=== PATIENT | female | born 1930 | race Caucasian/White ===

== ENCOUNTER 2021-11-20 12:39 | Inpatient (IN) | payer OTHER, SELFPAY ==
[~2021-11-20] VITALS: Ht 152.4 cm; Wt 51.7 kg
--- NOTE | 2021-11-20 12:43 | NUR ---
Patient to ER bed 04 to gown for evaluation. Side rails up.
[2021-11-20 12:50] VITALS: BP_SYST 144
[2021-11-20] MEDS ORDERED: NACL 0.9% 1,000 ML IV ONE (13:00)
[2021-11-20 13:27] LABS: BASOPHILS % (AUTO) 0.2 % (0.0-2.0); HEMATOCRIT 45.5 % (36-48); HEMOGLOBIN 14.4 g/dL (12.0-16.0); LYMPHOCYTES # (AUTO) 0.5 K/uL (1.0-5.5); LYMPHOCYTES % (AUTO) 3.2 % (20.5-51.5); MEAN CORPUSCULAR HEMOGLOBIN 31 pg (27-31); MEAN CORPUSCULAR HGB CONC 32 % (32-36); MEAN CORPUSCULAR VOLUME 97 fL (79.0-98.0); MONOCYTES # (AUTO) 1.1 K/uL (0.0-1.0); MONOCYTES % (AUTO) 7.6 % (1.7-9.3); NEUTROPHILS # (AUTO) 13.4 K/uL (1.8-7.7); PLATELET COUNT (AUTO) 371 K/uL (130-430); RED BLOOD CELL COUNT(AUTO) 4.68 MIL/uL (4.2-6.2); RED CELL DISTRIBUTION WIDTH 15.1 % (9.0-15.0)
[2021-11-20 13:47] LABS: ALANINE AMINOTRANSFERASE 40 U/L (12-78); ANION GAP 21 (5-15); ASPARTATE AMINOTRANSFERASE 51 U/L (10-37); CALCIUM 9.7 mg/dL (8.4-11.0); CHLORIDE 115 mmol/L (98-107); CREATININE 3.22 mg/dL (0.55-1.30); GLUCOSE 143 mg/dL (70-99); POTASSIUM 4.7 mmol/L (3.5-5.1); SODIUM SERUM 152 mmol/L (136-145); TOTAL BILIRUBIN 0.6 mg/dL (0.0-1.0)
[2021-11-20 13:57] LABS: UREA NITROGEN, BLOOD 128 mg/dL (8-21)
--- NOTE | 2021-11-20 14:18 | NUR ---
ER physician at bedside.
--- NOTE | 2021-11-20 14:19 | NUR ---
covid swab sent to lab
--- NOTE | 2021-11-20 14:19 | NUR ---
Cleaned pt and changed linen. EKG done at bedside.
[2021-11-20 14:30] LABS: CKMB RELATIVE INDEX 6.1 (0.0-2.9); CREATINE KINASE MB 23.6 ng/mL (0-3.6)
[2021-11-20] MEDS: NACL 0.9% 1,000 ML IV SCH (15:24)
--- NOTE | 2021-11-20 15:57 | NUR ---
1000ml NS running at 100ml/hr.
--- NOTE | 2021-11-20 18:19 | NUR ---
Family at bedside.
--- NOTE | 2021-11-20 18:21 | NUR ---
Pt's Temp was 95.3 rect[address] pt on a bed hugger running at 32Celsius and low rate. placed two warm blankets on pt. ER physician aware.
--- NOTE | 2021-11-20 19:32 | NUR ---
Patient AAO x2, resting comfortably in [facility], with bear hugger on, on radiographer cardiac catheterization, VSS, breathing even unlabored and even, on 2L NC with O2 saturation 99%, symmetrical chest rise and fall, no signs of acute distress noted. Patient IV fluids infusing at prescribed rate, no signs of infiltration noted. Will continue to monitor.
--- NOTE | 2021-11-20 20:22 | NUR ---
Patients son number David Campbell Fidel Campbell
--- NOTE | 2021-11-20 20:25 | NUR ---
Patient took nasal cannula off, patients oxygen saturation 97% on room air. Will continue to monitor.
--- NOTE | 2021-11-20 20:40 | NUR ---
Patient given sips of water. Patient cleaned and new sheets, linen, and gown on patient.
[2021-11-20] MEDS ORDERED: ALBUTEROL SULFATE 0.083% 2.5 MG/3 ML VIAL.NEB INH PRN (21:15)
[2021-11-20] MEDS ORDERED: ACETAMINOPHEN 325 MG TABLET PO PRN (21:15)
[2021-11-20] MEDS ORDERED: 0.45% NACL 1,000 ML IV SCH (21:15)
--- NOTE | 2021-11-20 21:18 | NUR ---
Patient will be admitted to care of Dr. Uribe. Admitted to TELE unit. Will go to room pending. Belongings list completed. Complete and up to date summary report printed. SBAR report to be given at bedside with opportunity for questions.
[2021-11-20] MEDS ORDERED: ASPIRIN 325 MG TABLET PO ONE (21:30)
--- NOTE | 2021-11-20 21:30 | NUR ---
Patient's code status is FULL CODE paperwork completed and placed in chart.
--- NOTE | 2021-11-20 21:34 | NUR ---
Patient will be going to room 104A
--- NOTE | 2021-11-20 22:11 | NUR ---
Patient saturated the bed with urine. Patient cleaned and linens changed.
--- NOTE | 2021-11-20 22:15 | NUR ---
Patients ainsley Hernandez updated on room number
--- NOTE | 2021-11-20 22:19 | NUR ---
Transfer to TELE via ACLS protocol. Licensed nurse present. IV present no signs or symptoms of infiltration.
--- NOTE | 2021-11-20 22:23 | NUR ---
ADMISSION NOTE Received patient from ER via nino, received report from CHANDAN SMILEY. Patient admitted with diagnosis of NSTEMI. Patient oriented to hospital routine, call light, toileting and safety-patient verbalized understanding.
[2021-11-20 22:37] VITALS: BP_SYST 134
--- NOTE | 2021-11-20 23:53 | NUR ---
CONSULTATION PAGED/CALLED Reason for Consultation: RENAL FAILURE Person Who was Notified: CHINEDU Consulting Physician: ROX Wad Impregnator Specialty: Ordering Physician: SHEBA
--- NOTE | 2021-11-21 | NUR ---
ROUNDING NOTES Patient resting in bed - no s/s pain or distress noted. Respirations even and unlabored - head of bed elevated. IV site patent - no s/s redness, infection, or infiltration. Bed locked and in lowest position. Call light within reach - bed alarm on.
--- NOTE | 2021-11-21 00:09 | NUR ---
CONSULTATION PAGED/CALLED Reason for Consultation: ELEVATED TROP Person Who was Notified: CHINEDU Consulting Physician: REGINO Photoengraver Specialty: Ordering Physician: ROSANA
[2021-11-21] MEDS ORDERED: cefTRIAXone 1 GM IVPB PREMIX 50 ML IV ONE (00:29)
[2021-11-21] MEDS: cefTRIAXone 1 GM IVPB PREMIX 50 ML IV SCH ×2 (00:41→21:43)
[2021-11-21 01:45] VITALS: BP_SYST 134
--- NOTE | 2021-11-21 05:29 | NUR ---
IV FLUID ISSUE IN EMAR TWO IV FLUIDS IN EMAR: ONE FOR 1/2NS and 0.9NS. NOTIFIED DR. CANO OF DISCREPANCY. ORDERS TO DISCONTINUE 1/2NS.
[2021-11-21] MEDS: NACL 0.9% 1,000 ML IV SCH ×3 (06:50→17:13)
--- NOTE | 2021-11-21 07:30 | NUR ---
CLOSING NOTES Patient resting in bed - no s/s pain or distress noted. Respirations even and unlabored - head of bed elevated. IV site patent - no s/s redness, infection, or infiltration. Bed locked and in lowest position. Call light within reach - bed alarm on. Patient cleaned at approximately 0600.
--- NOTE | 2021-11-21 07:35 | NUR ---
Opening Received report on pt. Pt AAOx1, in no distress or pain, on room air. IV site intact, patent with IVF infusing. Pt also noted with multiple ecchymotic sites. No other complaints per pt.
[2021-11-21 07:45] LABS: BASOPHILS % (AUTO) 0.1 % (0.0-2.0); HEMATOCRIT 40.7 % (36-48); HEMOGLOBIN 13.2 g/dL (12.0-16.0); LYMPHOCYTES # (AUTO) 0.8 K/uL (1.0-5.5); LYMPHOCYTES % (AUTO) 5.9 % (20.5-51.5); MEAN CORPUSCULAR HEMOGLOBIN 31 pg (27-31); MEAN CORPUSCULAR HGB CONC 33 % (32-36); MONOCYTES # (AUTO) 0.9 K/uL (0.0-1.0); MONOCYTES % (AUTO) 6.7 % (1.7-9.3); NEUTROPHILS # (AUTO) 11.4 K/uL (1.8-7.7); NEUTROPHILS % (AUTO) 87.3 % (40.0-70.0); PLATELET COUNT (AUTO) 343 K/uL (130-430); RED BLOOD CELL COUNT(AUTO) 4.26 MIL/uL (4.2-6.2); RED CELL DISTRIBUTION WIDTH 14.6 % (9.0-15.0); WHITE BLOOD COUNT (AUTO) 13.1 K/uL (4.8-10.8)
[2021-11-21 07:56] LABS: ALANINE AMINOTRANSFERASE 42 U/L (12-78); ALBUMIN 2.8 g/dL (3.4-4.8); ANION GAP 19 (5-15); ASPARTATE AMINOTRANSFERASE 43 U/L (10-37); CALCIUM 9.1 mg/dL (8.4-11.0); CHLORIDE 114 mmol/L (98-107); CREATININE 3.04 mg/dL (0.55-1.30); GLUCOSE 97 mg/dL (70-99); SODIUM SERUM 151 mmol/L (136-145); TOTAL BILIRUBIN 0.3 mg/dL (0.0-1.0)
[2021-11-21 08:07] LABS: UREA NITROGEN, BLOOD 128 mg/dL (8-21)
[2021-11-21 08:21] LABS: MEAN CORPUSCULAR VOLUME 95 fL (79.0-98.0)
[2021-11-21 09:17] LABS: CREATINE KINASE MB 19.7 ng/mL (0-3.6)
--- NOTE | 2021-11-21 09:40 | NUR ---
Medication reconciliation done, list provided by pt's son. Informed Dr. Uribe.
[2021-11-21] MEDS: ASPIRIN 325 MG TABLET PO SCH (09:58)
--- NOTE | 2021-11-21 10:00 | NUR ---
Dr. Uribe rounding on pt and speaking with pt's sons x3.
[2021-11-21] MEDS ORDERED: LISI20TA30 PO (10:13)
--- NOTE | 2021-11-21 10:48 | NUR ---
CONSULTATION: REASON FOR CONSULT: CONFUSION CONSULTING PHYSICIAN: Ritika MAR ORDERED BY: ROSANA SPOKE WITH NIMA [phone]
--- NOTE | 2021-11-21 10:50 | NUR ---
CONSULTATION: REASON FOR CONSULT: PSYCH ISSUES CONSULTING PHYSICIAN; Angelica GARCIA ORDERED BY: ROSANA SPOKE WITH CONRAD [phone]
--- NOTE | 2021-11-21 11:36 | NUR ---
Nutrition Update : Jamal Scale: 13 noted Pt admitted for NonST elevation myocardial infarction. Diet: Cardiac BMI: 22.5 kg/m2 RD to follow per nutrition care standards.
--- NOTE | 2021-11-21 12:00 | NUR ---
Pt in no acute distress at this time. IVF infusing, no infiltration noted.
[2021-11-21 12:37] VITALS: BP_SYST 138
--- NOTE | 2021-11-21 14:42 | NUR ---
INFORMED BALJIT VALENCIA THAT PT IS OFF MONITOR.
[2021-11-21 16:30] VITALS: BP_SYST 136
--- NOTE | 2021-11-21 16:30 | NUR ---
Collected urine culture from straight catheter using sterile technique. Pt tolerated well.
--- NOTE | 2021-11-21 17:00 | NUR ---
Multiple attempts to keep telemetry leads/monitor on patient, patient removes leads despite reorientation and education. Patient is confused.
--- NOTE | 2021-11-21 18:30 | NUR ---
Closing Pt up in bed eating dinner. Multiple attempts made to keep telemetry leads on despite education and reorientation. Pt states no pain or distress at this time on RA. IV site intact, patent, no infiltration noted with IVF infusing. Will endorse plan of care to oncoming RN.
[2021-11-21 18:32] LABS: BILIRUBIN,URINE 1+ (NEGATIVE); CLARITY/URINE CLEAR (CLEAR); GLUCOSE,URINE NEGATIVE (NEGATIVE); KETONES,URINE NEGATIVE (NEGATIVE); LEUKOCYTE ESTERASE ,URINE NEGATIVE (NEGATIVE); NITRITE, URINE NEGATIVE (NEGATIVE); PH,URINE 5.5 (5.0-8.0); PROTEIN URINE NEGATIVE (NEGATIVE); UROBILINOGEN,URINE 0.2 (0.2-1.0)
[2021-11-21 18:46] LABS: BLOOD, URINE TRACE (NEGATIVE); COLOR,URINE AMBER (YELLOW)
[2021-11-21 19:37] LABS: BACTERIA,URINE RARE /HPF (None Seen); MUCUS,URINE None Seen /LPF (None Seen); RBC,URINE 0-3 /HPF (0-3); WBC,URINE 0-3 /HPF (0-3)
[2021-11-21 22:09] VITALS: BP_SYST 151
[2021-11-22] MEDS: NACL 0.9% 1,000 ML IV SCH ×2 (00:40→09:00)
[2021-11-22 00:48] VITALS: BP_SYST 130
--- NOTE | 2021-11-22 06:47 | NUR ---
ALL NEEDS MET, SAFETY AND COMFORT MEASURES MAINTAINED THROUGHOUT THE SHIFT. PATIENT SLEPT MOST OF THE NIGHT AND WOKE UP DURING MED PASS OR IV BAG CHANGE. SHE IS ALERT AND ORIENTED BUT REPEATS HERSELF. CALL LIGHT WITHIN REACH AND BED AT LOWEST POSITION
[2021-11-22 08:00] VITALS: BP_SYST 129
[2021-11-22 08:11] LABS: BASOPHILS % (AUTO) 0.1 % (0.0-2.0); EOSINOPHILS % (AUTO) 0.3 % (0.0-4.0); HEMATOCRIT 37.2 % (36-48); HEMOGLOBIN 12.1 g/dL (12.0-16.0); LYMPHOCYTES # (AUTO) 0.7 K/uL (1.0-5.5); LYMPHOCYTES % (AUTO) 5.8 % (20.5-51.5); MEAN CORPUSCULAR HEMOGLOBIN 31 pg (27-31); MEAN CORPUSCULAR HGB CONC 32 % (32-36); MEAN CORPUSCULAR VOLUME 95 fL (79.0-98.0); MONOCYTES # (AUTO) 0.7 K/uL (0.0-1.0); MONOCYTES % (AUTO) 5.9 % (1.7-9.3); NEUTROPHILS # (AUTO) 10.3 K/uL (1.8-7.7); NEUTROPHILS % (AUTO) 87.9 % (40.0-70.0); PLATELET COUNT (AUTO) 306 K/uL (130-430); RED BLOOD CELL COUNT(AUTO) 3.92 MIL/uL (4.2-6.2); RED CELL DISTRIBUTION WIDTH 14.6 % (9.0-15.0); WHITE BLOOD COUNT (AUTO) 11.7 K/uL (4.8-10.8)
[2021-11-22 08:38] LABS: ALANINE AMINOTRANSFERASE 36 U/L (12-78); ALBUMIN 2.3 g/dL (3.4-4.8); ANION GAP 13 (5-15); ASPARTATE AMINOTRANSFERASE 41 U/L (10-37); CALCIUM 8.4 mg/dL (8.4-11.0); CREATININE 2.32 mg/dL (0.55-1.30); GLUCOSE 103 mg/dL (70-99); POTASSIUM 4.1 mmol/L (3.5-5.1); SODIUM SERUM 152 mmol/L (136-145); THYROID STIMULATING HORMONE 1.35 uIu/mL (0.36-3.74); TOTAL BILIRUBIN 0.2 mg/dL (0.0-1.0)
[2021-11-22] MEDS: ASPIRIN 325 MG TABLET PO SCH (09:44)
[2021-11-22 09:59] LABS: CHLORIDE 120 mmol/L (98-107)
[2021-11-22 10:00] LABS: UREA NITROGEN, BLOOD 101 mg/dL (8-21)
[2021-11-22 10:31] LABS: CHOLESTEROL 170 mg/dL (<200); HDL CHOLESTEROL 54 mg/dL (>55); LDL CHOLESTEROL 86 mg/dL (<100); TRIGLYCERIDES 100 mg/dL (30-150)
[2021-11-22 13:09] VITALS: BP_SYST 134
[2021-11-22 17:47] VITALS: BP_SYST 175
--- NOTE | 2021-11-22 21:00 | NUR ---
pt awake, alert & oriented. not in distress. meds administered as ordered. turned and repositioned. new IV on right hand inserted due to prior iv lines infiltrated. new iv line intact and patent. ivf running. w/ f/c draining yellow colored urine adequate output. proper skin care provided. call light w/in reach. Addendum: 11/23/21 at 0804 by Fifteen air bag builder wrong patient
[2021-11-22] MEDS: cefTRIAXone 1 GM IVPB PREMIX 50 ML IV SCH (21:15)
[2021-11-23] VITALS (7 sets, daily range): BP systolic 136–164
--- NOTE | 2021-11-23 03:30 | NUR ---
pt asleep, easily arousable to verbal & tactile stimuli.. not in distress. turned and repositioned. ivf running. proper skin care provided. handled resident gently & carefully during care. proper incontinence care provided . offered extra oral fluids as tiburcio. no a/r from iv abx. turned & repositioned q2h. call light w/in reach.needs anticipated. endorsed accordingly to upcoming shift.
--- NOTE | 2021-11-23 06:00 | NUR ---
pt awake, alert & oriented. not in distress. turned and repositioned. ivf running. w/ f/c draining yellow colored urine adequate output. proper joya care provided. blood sugar checked as ordered and wnl. proper skin care provided. call light w/in reach.needs anticipated. endorsed accordingly to upcoming shift. Addendum: 11/23/21 at 0803 by Fifteen dust sampler wrong patient
[2021-11-23] MEDS: NACL 0.9% 1,000 ML IV SCH (06:19)
[2021-11-23 07:12] LABS: BASOPHILS % (AUTO) 0.2 % (0.0-2.0); EOSINOPHILS # (AUTO) 0.1 K/uL (0.0-0.4); EOSINOPHILS % (AUTO) 0.9 % (0.0-4.0); HEMATOCRIT 36.9 % (36-48); HEMOGLOBIN 12.2 g/dL (12.0-16.0); LYMPHOCYTES # (AUTO) 0.7 K/uL (1.0-5.5); LYMPHOCYTES % (AUTO) 7.4 % (20.5-51.5); MEAN CORPUSCULAR HEMOGLOBIN 31 pg (27-31); MEAN CORPUSCULAR HGB CONC 33 % (32-36); MEAN CORPUSCULAR VOLUME 94 fL (79.0-98.0); MONOCYTES # (AUTO) 0.7 K/uL (0.0-1.0); MONOCYTES % (AUTO) 7.3 % (1.7-9.3); NEUTROPHILS # (AUTO) 7.7 K/uL (1.8-7.7); NEUTROPHILS % (AUTO) 84.2 % (40.0-70.0); PLATELET COUNT (AUTO) 274 K/uL (130-430); RED BLOOD CELL COUNT(AUTO) 3.95 MIL/uL (4.2-6.2); RED CELL DISTRIBUTION WIDTH 14.8 % (9.0-15.0); WHITE BLOOD COUNT (AUTO) 9.1 K/uL (4.8-10.8)
--- NOTE | 2021-11-23 08:00 | NUR ---
PATIENT IS AWAKE, ALERT, ORIENTED X 3 TO NAME, PERSON, AND PLACE. RESPIRATION EVEN AND UNLABORED NO S/S OF ANY ACUTE DISTRESS NOTED. ABLE TO VERBALIZE NEEDS NO C/O ANY PAIN OR DISCOMFORT NOTED. ABDOMEN SOFT AND NON-DISTENDED, POSITIVE BOWEL SOUND X 4 NO N/V OR DIARRHEA NOTED. MULTIPLE SKIN PROBLEM, WOUND CARE NURSE TO SEE PATIENT WILL START TREATMENT ON SKIN PROBLEM TODAY PER PROTOCOL.
[2021-11-23 08:03] LABS: ALANINE AMINOTRANSFERASE 38 U/L (12-78); ALBUMIN 2.3 g/dL (3.4-4.8); ANION GAP 10 (5-15); ASPARTATE AMINOTRANSFERASE 34 U/L (10-37); CALCIUM 8.3 mg/dL (8.4-11.0); GLUCOSE 105 mg/dL (70-99); POTASSIUM 4.1 mmol/L (3.5-5.1); SODIUM SERUM 156 mmol/L (136-145); TOTAL BILIRUBIN 0.1 mg/dL (0.0-1.0); UREA NITROGEN, BLOOD 75 mg/dL (8-21)
[2021-11-23 08:12] LABS: CHLORIDE 123 mmol/L (98-107)
--- NOTE | 2021-11-23 08:16 | NUR ---
critical informed RN of critical Chloride
[2021-11-23] MEDS ORDERED: 0.45% NACL 1,000 ML IV ONE (10:08)
[2021-11-23] MEDS: ASPIRIN 325 MG TABLET PO SCH (11:02)
[2021-11-23] MEDS: D5W 1,000 ML IV SCH ×2 (11:02→20:44)
--- NOTE | 2021-11-23 15:10 | NUR ---
WOUND EVALUATION: Wound Consult received from Dr. Uribe. Thank you, Dr. Uribe, for the consult. Patient received in a [place] Bed with an IsoFlex TEDDY mattress (low air-loss therapy was initiated), awake, alert, confused. Patient is unable to turn in bed independently. Jamal Score is a 15. Past Medical History: Hypertension, Dementia. Recent Labs: WBC 9.1, RBC 3.95, hemoglobin 12.2, hematocrit 36.9, sodium 156, chloride 123, BUN 75, creatinine 1.80, glucose 105, calcium 8.3, serum total protein 5.7, albumin 2.3. No microbiology reports. Intrinsic factors that delay wound healing: Hypoalbuminemia. Extrinsic factors that delay wound healing: Decreased mobility. Wound Assessment: 1. Right Lower Abdomen: Wound of unknown etiology, possibly moisture associated, present on admission. Wound bed has 70% denuded red tissue, 30% yellow tissue. No odor, scant yellow drainage. Periwound intact. Surrounding tissue has erythema. Wound measures 14.3 cm x 11.5 cm. Recommend: Cleanse wound with normal saline. Apply Calmoseptine to site and periwound. Apply Venelex ointment to any portion of site not covered by Calmoseptine cream. Cover site with non-adhesive foam dressings, then secure with transparent dressings. Perform wound care daily, and is needed with dressing soiling or dislodgment. 2. Left Lateral Lower Abdomen: Wound of unknown etiology, present on admission. Wound bed has 70% black tissue, 25% yellow tissue, 5% pink tissue. No odor, scant yellow drainage. Periwound intact. Wound measures 8.7 cm x 7.0 cm. Recommend: Cleanse wound with normal saline. Apply Calmoseptine cream to periwound. Apply Venelex ointment to wound bed. Cover site with foam dressing. Perform wound care daily, and is needed with dressing soiling or dislodgment. 3. Left Lateral Knee: Dry brown excoriations, present on admission. No odor, no drainage. 4. Right Medial Knee: Dry brown excoriations, present on admission. No odor, no drainage. Recommend: No dressings needed. Continue to monitor sites every shift. Also recommend: Encourage and assist patient as needed with repositioning every 2 hours with pillow support and off-load pressure areas with pillows for pressure re-distribution. Offload, elevate and float bilateral heels with pillows. Perform skin care and monitor skin integrity Q shift. Use moisture barrier cream on buttocks and other moisture susceptible areas QID and as needed for soiling. Maintain patient on a low air-loss mattress. Addendum: 11/23/21 at 1714 by Francisco Dong RN Addendum: 5. Buttocks/Sacral area: Erythema from IAD present on buttocks and sacral area. Recommend: Cleanse involved areas with mild soap and water. Pat dry. Apply Calmoseptine to involved areas. Perform site care qid, and as needed for soiling. 6. Bilateral Anterior Thighs and Abdomen: Generalized erythema (possible rash) present on bilateral anterior thighs and abdomen. Recommend: Cleanse involved areas with mild soap and water. Pat dry. Apply Calmoseptine to involved areas. Perform site care qid, and as needed for soiling.
[2021-11-23] MEDS ORDERED: MENTHOL/ZINC OXIDE 113 GM OINT. TP PRN (16:30)
[2021-11-23] MEDS ORDERED: BALSAM PERU/CASTOR OIL 56.7 GM OINT...G. TP ONE (16:30)
--- NOTE | 2021-11-23 19:00 | NUR ---
WOUND CARE NURSE DID SEE PATIENT TONIGHT AND TREATMENT TO BE STARTED. ABNORMAL LAB RELAYED TO MD WITH NEW ORDERS RECEIVED AND CARRIED OUT ORDERED. PATIENT TOLERATED PO WELL WITH FAIR APPETITE W/O ANY ABDOMINAL DISCOMFORT NOTED. ENDORSE PATIENT TO PM SHIFT NURSE.
[2021-11-23] MEDS: cefTRIAXone 1 GM IVPB PREMIX 50 ML IV SCH (20:38)
[2021-11-24 07:35] LABS: BASOPHILS % (AUTO) 0.3 % (0.0-2.0); EOSINOPHILS # (AUTO) 0.2 K/uL (0.0-0.4); EOSINOPHILS % (AUTO) 2.1 % (0.0-4.0); HEMOGLOBIN 12.7 g/dL (12.0-16.0); LYMPHOCYTES # (AUTO) 0.6 K/uL (1.0-5.5); MEAN CORPUSCULAR HEMOGLOBIN 31 pg (27-31); MEAN CORPUSCULAR HGB CONC 33 % (32-36); MEAN CORPUSCULAR VOLUME 96 fL (79.0-98.0); MONOCYTES # (AUTO) 0.7 K/uL (0.0-1.0); NEUTROPHILS # (AUTO) 8.2 K/uL (1.8-7.7); NEUTROPHILS % (AUTO) 84.6 % (40.0-70.0); PLATELET COUNT (AUTO) 268 K/uL (130-430); RED BLOOD CELL COUNT(AUTO) 4.08 MIL/uL (4.2-6.2); RED CELL DISTRIBUTION WIDTH 14.4 % (9.0-15.0); WHITE BLOOD COUNT (AUTO) 9.7 K/uL (4.8-10.8)
[2021-11-24 08:00] VITALS: BP_SYST 146
[2021-11-24 08:21] LABS: ALANINE AMINOTRANSFERASE 46 U/L (12-78); ALBUMIN 2.4 g/dL (3.4-4.8); ANION GAP 11 (5-15); ASPARTATE AMINOTRANSFERASE 38 U/L (10-37); CALCIUM 8.5 mg/dL (8.4-11.0); CHLORIDE 113 mmol/L (98-107); CREATININE 1.34 mg/dL (0.55-1.30); GLUCOSE 104 mg/dL (70-99); POTASSIUM 3.8 mmol/L (3.5-5.1); SODIUM SERUM 145 mmol/L (136-145); TOTAL BILIRUBIN 0.3 mg/dL (0.0-1.0); UREA NITROGEN, BLOOD 52 mg/dL (8-21)
[2021-11-24] MEDS: ASPIRIN 325 MG TABLET PO SCH (10:43)
[2021-11-24] MEDS: BALSAM PERU/CASTOR OIL 56.7 GM OINT...G. TP SCH (10:46)
[2021-11-24 12:00] VITALS: BP_SYST 150
[2021-11-24 16:00] VITALS: BP_SYST 147
[2021-11-24] MEDS: D5W 1,000 ML IV SCH ×2 (16:15→17:15)
[2021-11-24 20:00] VITALS: BP_SYST 158
[2021-11-24 20:11] VITALS: BP_SYST 158
[2021-11-25] VITALS: BP_SYST 116
[2021-11-25 07:42] LABS: BASOPHILS % (AUTO) 0.1 % (0.0-2.0); EOSINOPHILS # (AUTO) 0.2 K/uL (0.0-0.4); EOSINOPHILS % (AUTO) 2.1 % (0.0-4.0); HEMATOCRIT 38.1 % (36-48); HEMOGLOBIN 12.4 g/dL (12.0-16.0); LYMPHOCYTES # (AUTO) 0.5 K/uL (1.0-5.5); LYMPHOCYTES % (AUTO) 5.2 % (20.5-51.5); MEAN CORPUSCULAR HEMOGLOBIN 31 pg (27-31); MEAN CORPUSCULAR HGB CONC 33 % (32-36); MEAN CORPUSCULAR VOLUME 95 fL (79.0-98.0); MONOCYTES # (AUTO) 0.8 K/uL (0.0-1.0); MONOCYTES % (AUTO) 7.9 % (1.7-9.3); NEUTROPHILS # (AUTO) 8.9 K/uL (1.8-7.7); NEUTROPHILS % (AUTO) 84.7 % (40.0-70.0); PLATELET COUNT (AUTO) 254 K/uL (130-430); RED BLOOD CELL COUNT(AUTO) 4.03 MIL/uL (4.2-6.2); RED CELL DISTRIBUTION WIDTH 14.3 % (9.0-15.0); WHITE BLOOD COUNT (AUTO) 10.5 K/uL (4.8-10.8)
[2021-11-25 08:12] LABS: ANION GAP 11 (5-15); CALCIUM 8.3 mg/dL (8.4-11.0); CHLORIDE 109 mmol/L (98-107); CREATININE 1.17 mg/dL (0.55-1.30); GLUCOSE 116 mg/dL (70-99); PHOSPHORUS 2.1 mg/dL (2.7-4.5); POTASSIUM 3.7 mmol/L (3.5-5.1); SODIUM SERUM 142 mmol/L (136-145); UREA NITROGEN, BLOOD 36 mg/dL (8-21)
[2021-11-25 09:04] LABS: C-REACTIVE PROTEIN QUANT 6.4 mg/dL (0-0.5)
[2021-11-25] MEDS: ASPIRIN 325 MG TABLET PO SCH (09:09)
[2021-11-25] MEDS: BALSAM PERU/CASTOR OIL 56.7 GM OINT...G. TP SCH (09:10)
[2021-11-25] MEDS: cefTRIAXone 1 GM IVPB PREMIX 50 ML IV SCH ×2 (09:19→21:58)
[2021-11-25 09:24] VITALS: BP_SYST 170
[2021-11-25 09:24] LABS: ERYTHROCYTE SEDIMENTATION RATE 17 MM/HR (0-20)
--- NOTE | 2021-11-25 15:31 | NUR ---
Dietitian Recommendations * Cardiac diet, Ensure Enlive BID, Mike BID (supplements yield 880 kcal/day, 45 gm protein/day) * Encourage increase PO intakes LP, RD Please refer to Nutrition Assessment for details. Addendum: 11/25/21 at [address] Amended: Links added.
[2021-11-25 20:00] VITALS: BP_SYST 125
[2021-11-26 07:36] LABS: BASOPHILS # (AUTO) 0.1 K/uL (0.0-0.2); BASOPHILS % (AUTO) 0.8 % (0.0-2.0); EOSINOPHILS # (AUTO) 0.2 K/uL (0.0-0.4); EOSINOPHILS % (AUTO) 1.7 % (0.0-4.0); HEMATOCRIT 37.6 % (36-48); HEMOGLOBIN 12.6 g/dL (12.0-16.0); LYMPHOCYTES # (AUTO) 0.5 K/uL (1.0-5.5); LYMPHOCYTES % (AUTO) 5.3 % (20.5-51.5); MEAN CORPUSCULAR HEMOGLOBIN 31 pg (27-31); MEAN CORPUSCULAR HGB CONC 34 % (32-36); MEAN CORPUSCULAR VOLUME 93 fL (79.0-98.0); MONOCYTES # (AUTO) 0.8 K/uL (0.0-1.0); MONOCYTES % (AUTO) 7.3 % (1.7-9.3); NEUTROPHILS # (AUTO) 8.9 K/uL (1.8-7.7); NEUTROPHILS % (AUTO) 84.9 % (40.0-70.0); PLATELET COUNT (AUTO) 240 K/uL (130-430); RED BLOOD CELL COUNT(AUTO) 4.03 MIL/uL (4.2-6.2); RED CELL DISTRIBUTION WIDTH 14.1 % (9.0-15.0); WHITE BLOOD COUNT (AUTO) 10.4 K/uL (4.8-10.8)
--- NOTE | 2021-11-26 08:00 | NUR ---
NOTES PATIENT ALERT AWAKE BUT CONFUSED. VITALS SIGNS STABLE. AFEBRILE. LUNGS BILATERALLY CLEAR. ABDOMEN SOFT AND NON DISTENDED. HAS DRESSING LOWER AREA OF THE ABDOMEN AND LEFT SIDE. DRY AND INTACT. HAS IV ACCESS ON THE RT FOREARM #22. SALINE LOCK PATENT/DRY. WILL CONTINUE TO MONITOR PATIENTS STATUS.
[2021-11-26 08:14] VITALS: BP_SYST 144
[2021-11-26 08:14] LABS: ALANINE AMINOTRANSFERASE 40 U/L (12-78); ALBUMIN 2.1 g/dL (3.4-4.8); ANION GAP 7 (5-15); ASPARTATE AMINOTRANSFERASE 24 U/L (10-37); CALCIUM 8.1 mg/dL (8.4-11.0); CHLORIDE 107 mmol/L (98-107); CREATININE 1.05 mg/dL (0.55-1.30); GLUCOSE 127 mg/dL (70-99); PHOSPHORUS 2.5 mg/dL (2.7-4.5); POTASSIUM 3.6 mmol/L (3.5-5.1); SODIUM SERUM 138 mmol/L (136-145); TOTAL BILIRUBIN 0.3 mg/dL (0.0-1.0); UREA NITROGEN, BLOOD 24 mg/dL (8-21)
--- NOTE | 2021-11-26 09:00 | NUR ---
DUE MEDS GIVEN AT THIS TIME
[2021-11-26 09:23] LABS: ERYTHROCYTE SEDIMENTATION RATE 15 MM/HR (0-20)
[2021-11-26] MEDS: BALSAM PERU/CASTOR OIL 56.7 GM OINT...G. TP SCH (09:33)
[2021-11-26 10:28] LABS: C-REACTIVE PROTEIN QUANT 6.9 mg/dL (0-0.5)
[2021-11-26] MEDS: ASPIRIN 325 MG TABLET PO SCH (10:37)
[2021-11-26 12:00] VITALS: BP_SYST 145
--- NOTE | 2021-11-26 16:13 | NUR ---
MS ALEXANDER GLASS, [facility]/HCP CM CALLED AND GAVE TRANSFER INFO: [facility] [address], [facility] ON WILL CALL.
--- NOTE | 2021-11-26 16:17 | NUR ---
WILL CALL STATUS FOR AMBULANCE TRANSPORT WAS ACTIVATED FOR A WARP KNITTING MACHINE OPERATOR TIME AT 2029. SPOKE TO FREDRICK, DISPATCHER OF [facility].
[2021-11-26 16:31] VITALS: BP_SYST 141
--- NOTE | 2021-11-26 16:45 | NUR ---
SBAR REPORT GIVEN TO PHYLICIA SMILEY AT [facility] GOING TO ROOM 204-B AND PSYCHOLOGY DEPARTMENT CHAIR TIME 2030PM RIMA.
--- NOTE | 2021-11-26 17:00 | NUR ---
CARLOS AND HYGIENE CARE DONE. PLACED CALMOSEPTINE CREAM ON THE REDNESS AREA. PLACED VENELEX CREAM AROUND THE AREA OF THE BUTTOCKS AND REDNESS. DRESSING CHANGED ON LOWER ABDOMINAL AREA.
--- NOTE | 2021-11-26 17:20 | NUR ---
GALINA LARA SON TO NOTIFY FOR THE TRANSFER.
[2021-11-26 18:20] VITALS: BP_SYST 141
[2021-11-26 18:50] VITALS: BP_SYST 144
--- NOTE | 2021-11-26 18:53 | NUR ---
AWAITING FOR THE [facility] TO EXPORT TRAFFIC DEPARTMENT MANAGER AT 2030PM . DRESSING DONE LOWER ABDOMEN. NO PHOTOS TAKEN FAMILY REFUSED. AND BESIDE NO AVAILABLE CAMERA TO USED AT THIS TIME.
--- NOTE | 2021-11-26 19:35 | NUR ---
opening note Received patient awake, in bed in high fowlers position. No distress and nonlabored breathing on room air. Meal tray at bedside and she finished eating. Bed is locked in lowest position, side rails up and bed alarm on.
[2021-11-26 20:00] VITALS: BP_SYST 138
--- NOTE | 2021-11-26 21:08 | NUR ---
Discharge late entry d/t patient care. Report given to BETH Galo. Transfer packet with Transfer Orders and Medication Reconciliation form given to EMT. Exitcare provided. [facility] ID band removed, replaced with ID band with pt's name and . She did not have an IV catheter. All belongings sent with patient. Patient left floor via gurney escorted by EMT in no distress.
== END 2021-11-26 20:00 | DRG 682 ==
LOC: SED 12:39 → STU 21:15 → SMU 22:19 → STU 22:32 → SMU 11-22 11:10
PROVIDERS: ADMIT Internal Medicine Hospice and Palliative Medicine; ATTEND Internal Medicine Hospice and Palliative Medicine
DX: N17.0 Acute kidney failure with tubular necrosis (principal); I21.A1 Myocardial infarction type 2; G93.41 Metabolic encephalopathy; M62.82 Rhabdomyolysis; E87.0 Hyperosmolality and hypernatremia; E86.0 Dehydration; Z20.822 Contact with and (suspected) exposure to COVID-19; D72.829 Elevated white blood cell count, unspecified; E83.39 Other disorders of phosphorus metabolism; E83.52 Hypercalcemia; F03.90 Unspecified dementia, unspecified severity, without behavioral disturbance, psychotic disturbance, mood disturbance, and anxiety; F32.A Depression, unspecified; F41.9 Anxiety disorder, unspecified; I10 Essential (primary) hypertension; R53.81 Other malaise; Z60.2 Problems related to living alone; S70.211A Abrasion, right hip, initial encounter; W01.0XXA Fall on same level from slipping, tripping and stumbling without subsequent striking against object, initial encounter; R73.9 Hyperglycemia, unspecified; Z87.891 Personal history of nicotine dependence; Y93.89 Activity, other specified; Y92.89 Other specified places as the place of occurrence of the external cause; Y99.8 Other external cause status
CPT/HCPCS: 36415; 70450-TC; 70551; 71045; 72170-TC; 73030; 76376; 76770; 80048; 80053; 80061; 81000; 82550; 82553; 83735; 83880; 84100; 84443; 84484; 85025; 85651-TC; 86140; 93005; 93306; 97116-GP; 97530-GP; 99291; G0378; J0696

== ENCOUNTER 2022-06-12 17:41 | Inpatient (IN) | payer OTHER ==
[~2022-06-12] VITALS: Ht 160 cm; Wt 55.3 kg
[2022-06-12 18:10] VITALS: BP_SYST 219
[2022-06-12 19:00] LABS: BASOPHILS # (AUTO) 0.1 K/uL (0.0-0.2); BASOPHILS % (AUTO) 1.7 % (0.0-2.0); EOSINOPHILS # (AUTO) 0.2 K/uL (0.0-0.4); EOSINOPHILS % (AUTO) 2.4 % (0.0-4.0); HEMATOCRIT 36.7 % (36-48); HEMOGLOBIN 12.2 g/dL (12.0-16.0); LYMPHOCYTES # (AUTO) 1.6 K/uL (1.0-5.5); LYMPHOCYTES % (AUTO) 24.1 % (20.5-51.5); MEAN CORPUSCULAR HEMOGLOBIN 31 pg (27-31); MEAN CORPUSCULAR HGB CONC 33 % (32-36); MEAN CORPUSCULAR VOLUME 94 fL (79.0-98.0); MONOCYTES # (AUTO) 0.6 K/uL (0.0-1.0); MONOCYTES % (AUTO) 8.8 % (1.7-9.3); NEUTROPHILS # (AUTO) 4.2 K/uL (1.8-7.7); PLATELET COUNT (AUTO) 301 K/uL (130-430); RED BLOOD CELL COUNT(AUTO) 3.92 MIL/uL (4.2-6.2); RED CELL DISTRIBUTION WIDTH 15.4 % (9.0-15.0); WHITE BLOOD COUNT (AUTO) 6.6 K/uL (4.8-10.8)
[2022-06-12 19:06] LABS: ANION GAP 3 (5-15); CHLORIDE 104 mmol/L (98-107); CREATININE 1.09 mg/dL (0.55-1.30); GLUCOSE 100 mg/dL (70-99); POTASSIUM 4.8 mmol/L (3.5-5.1); SODIUM SERUM 139 mmol/L (136-145); UREA NITROGEN, BLOOD 23 mg/dL (8-21)
[2022-06-12] MEDS ORDERED: cloNIDine HCL 0.1 MG TABLET PO ONE ×2 (19:15→19:30)
[2022-06-12 19:21] LABS: ALANINE AMINOTRANSFERASE 10 U/L (12-78); ALBUMIN 3.3 g/dL (3.4-4.8); ASPARTATE AMINOTRANSFERASE 15 U/L (10-37); C-REACTIVE PROTEIN QUANT 0.4 mg/dL (0-0.5); TOTAL BILIRUBIN 0.2 mg/dL (0.0-1.0)
[2022-06-12] MEDS ORDERED: ONDANSETRON HCL 4 MG/2 ML VIAL IVP PRN (21:00)
[2022-06-12] MEDS ORDERED: ACETAMINOPHEN 325 MG TABLET PO PRN (21:00)
[2022-06-12] MEDS ORDERED: LORazepam 2 MG/ML VIAL IVP PRN (21:00)
[2022-06-12] MEDS: NORMAL SALINE 5 ML DISP.SYRIN IVF SCH (22:00)
[2022-06-12 23:29] VITALS: BP_SYST 152
[2022-06-13] MEDS: NORMAL SALINE 5 ML DISP.SYRIN IVF SCH ×5 (00:02→15:16)
[2022-06-13 01:21] VITALS: BP_SYST 173
[2022-06-13] MEDS: ENALAPRILAT DIHYDRATE 1.25 MG/ML VIAL IVP PRN (01:36)
[2022-06-13 06:49] LABS: BASOPHILS % (AUTO) 0.9 % (0.0-2.0); EOSINOPHILS # (AUTO) 0.1 K/uL (0.0-0.4); EOSINOPHILS % (AUTO) 2.5 % (0.0-4.0); HEMATOCRIT 33.6 % (36-48); HEMOGLOBIN 11.2 g/dL (12.0-16.0); LYMPHOCYTES # (AUTO) 1.3 K/uL (1.0-5.5); LYMPHOCYTES % (AUTO) 24.1 % (20.5-51.5); MEAN CORPUSCULAR HEMOGLOBIN 31 pg (27-31); MEAN CORPUSCULAR HGB CONC 33 % (32-36); MEAN CORPUSCULAR VOLUME 93 fL (79.0-98.0); MONOCYTES # (AUTO) 0.5 K/uL (0.0-1.0); MONOCYTES % (AUTO) 9.3 % (1.7-9.3); NEUTROPHILS # (AUTO) 3.4 K/uL (1.8-7.7); NEUTROPHILS % (AUTO) 63.2 % (40.0-70.0); PLATELET COUNT (AUTO) 267 K/uL (130-430); RED CELL DISTRIBUTION WIDTH 15.3 % (9.0-15.0); WHITE BLOOD COUNT (AUTO) 5.3 K/uL (4.8-10.8)
[2022-06-13 08:13] LABS: ANION GAP 4 (5-15); CALCIUM 8.9 mg/dL (8.4-11.0); CHLORIDE 105 mmol/L (98-107); CREATININE 1.22 mg/dL (0.55-1.30); GLUCOSE 92 mg/dL (70-99); PHOSPHORUS 4.4 mg/dL (2.7-4.5); POTASSIUM 4.1 mmol/L (3.5-5.1); SODIUM SERUM 139 mmol/L (136-145); UREA NITROGEN, BLOOD 21 mg/dL (8-21)
[2022-06-13] MEDS: amLODIPine BESYLATE 5 MG TABLET PO SCH (09:42)
[2022-06-13 12:08] VITALS: BP_SYST 144
[2022-06-13 16:18] VITALS: BP_SYST 139
[2022-06-13] MEDS ORDERED: BALSAM PERU/CASTOR OIL 56.7 GM OINT...G. TP ONE (17:30)
[2022-06-13 19:40] VITALS: BP_SYST 148
[2022-06-14] VITALS (8 sets, daily range): BP systolic 142–194
[2022-06-14] MEDS: ENALAPRILAT DIHYDRATE 1.25 MG/ML VIAL IVP PRN ×3 (00:13→22:59)
[2022-06-14] MEDS: NORMAL SALINE 5 ML DISP.SYRIN IVF SCH ×6 (00:13→23:01)
[2022-06-14] MEDS: amLODIPine BESYLATE 5 MG TABLET PO SCH (08:46)
[2022-06-14] MEDS: BALSAM PERU/CASTOR OIL 56.7 GM OINT...G. TP SCH (09:47)
[2022-06-15 04:09] VITALS: BP_SYST 145
[2022-06-15 07:49] LABS: BASOPHILS # (AUTO) 0.1 K/uL (0.0-0.2); BASOPHILS % (AUTO) 0.9 % (0.0-2.0); EOSINOPHILS # (AUTO) 0.1 K/uL (0.0-0.4); EOSINOPHILS % (AUTO) 2.6 % (0.0-4.0); HEMATOCRIT 35.2 % (36-48); HEMOGLOBIN 11.7 g/dL (12.0-16.0); LYMPHOCYTES % (AUTO) 18.1 % (20.5-51.5); MEAN CORPUSCULAR HEMOGLOBIN 31 pg (27-31); MEAN CORPUSCULAR HGB CONC 33 % (32-36); MEAN CORPUSCULAR VOLUME 94 fL (79.0-98.0); MONOCYTES # (AUTO) 0.5 K/uL (0.0-1.0); MONOCYTES % (AUTO) 9.2 % (1.7-9.3); NEUTROPHILS # (AUTO) 3.9 K/uL (1.8-7.7); NEUTROPHILS % (AUTO) 69.2 % (40.0-70.0); PLATELET COUNT (AUTO) 267 K/uL (130-430); RED BLOOD CELL COUNT(AUTO) 3.75 MIL/uL (4.2-6.2); RED CELL DISTRIBUTION WIDTH 15.4 % (9.0-15.0); WHITE BLOOD COUNT (AUTO) 5.6 K/uL (4.8-10.8)
[2022-06-15 08:00] VITALS: BP_SYST 156
[2022-06-15 08:16] LABS: ANION GAP 6 (5-15); CALCIUM 8.8 mg/dL (8.4-11.0); CHLORIDE 104 mmol/L (98-107); CREATININE 1.21 mg/dL (0.55-1.30); GLUCOSE 84 mg/dL (70-99); POTASSIUM 4.6 mmol/L (3.5-5.1); SODIUM SERUM 139 mmol/L (136-145); UREA NITROGEN, BLOOD 29 mg/dL (8-21)
[2022-06-15] MEDS: NORMAL SALINE 5 ML DISP.SYRIN IVF SCH ×5 (08:37→22:00)
[2022-06-15] MEDS: amLODIPine BESYLATE 5 MG TABLET PO SCH (08:37)
[2022-06-15] MEDS: BALSAM PERU/CASTOR OIL 56.7 GM OINT...G. TP SCH (08:40)
[2022-06-15 12:00] VITALS: BP_SYST 144
[2022-06-15 16:53] VITALS: BP_SYST 167
[2022-06-15 17:00] VITALS: BP_SYST 148
[2022-06-15 19:40] VITALS: BP_SYST 197
[2022-06-15] MEDS: ENALAPRILAT DIHYDRATE 1.25 MG/ML VIAL IVP PRN (20:08)
[2022-06-16 00:13] VITALS: BP_SYST 162
[2022-06-16 05:07] VITALS: BP_SYST 178
[2022-06-16] MEDS: ENALAPRILAT DIHYDRATE 1.25 MG/ML VIAL IVP PRN (05:07)
[2022-06-16] MEDS: NORMAL SALINE 5 ML DISP.SYRIN IVF SCH ×6 (05:10→21:42)
[2022-06-16 08:00] VITALS: BP_SYST 158
[2022-06-16 08:19] LABS: BASOPHILS % (AUTO) 0.4 % (0.0-2.0); EOSINOPHILS # (AUTO) 0.1 K/uL (0.0-0.4); EOSINOPHILS % (AUTO) 1.4 % (0.0-4.0); HEMATOCRIT 35.8 % (36-48); HEMOGLOBIN 11.9 g/dL (12.0-16.0); LYMPHOCYTES # (AUTO) 1.3 K/uL (1.0-5.5); LYMPHOCYTES % (AUTO) 15.7 % (20.5-51.5); MEAN CORPUSCULAR HEMOGLOBIN 31 pg (27-31); MEAN CORPUSCULAR HGB CONC 33 % (32-36); MEAN CORPUSCULAR VOLUME 94 fL (79.0-98.0); MONOCYTES # (AUTO) 0.7 K/uL (0.0-1.0); MONOCYTES % (AUTO) 9.1 % (1.7-9.3); NEUTROPHILS % (AUTO) 73.4 % (40.0-70.0); PLATELET COUNT (AUTO) 266 K/uL (130-430); RED BLOOD CELL COUNT(AUTO) 3.81 MIL/uL (4.2-6.2); RED CELL DISTRIBUTION WIDTH 15.6 % (9.0-15.0); WHITE BLOOD COUNT (AUTO) 8.1 K/uL (4.8-10.8)
[2022-06-16 09:08] LABS: ANION GAP 5 (5-15); CALCIUM 8.7 mg/dL (8.4-11.0); CHLORIDE 104 mmol/L (98-107); CREATININE 1.17 mg/dL (0.55-1.30); GLUCOSE 88 mg/dL (70-99); POTASSIUM 4.3 mmol/L (3.5-5.1); SODIUM SERUM 137 mmol/L (136-145); UREA NITROGEN, BLOOD 34 mg/dL (8-21)
[2022-06-16] MEDS: amLODIPine BESYLATE 5 MG TABLET PO SCH (09:09)
[2022-06-16] MEDS: BALSAM PERU/CASTOR OIL 56.7 GM OINT...G. TP SCH (09:10)
[2022-06-16 12:00] VITALS: BP_SYST 148
[2022-06-16 16:00] VITALS: BP_SYST 142
[2022-06-16 20:00] VITALS: BP_SYST 140
[2022-06-17] VITALS: BP_SYST 138
[2022-06-17 04:00] VITALS: BP_SYST 180
[2022-06-17] MEDS: ENALAPRILAT DIHYDRATE 1.25 MG/ML VIAL IVP PRN (04:24)
[2022-06-17] MEDS: NORMAL SALINE 5 ML DISP.SYRIN IVF SCH ×4 (06:18→21:28)
[2022-06-17 06:47] LABS: BASOPHILS % (AUTO) 0.7 % (0.0-2.0); EOSINOPHILS # (AUTO) 0.2 K/uL (0.0-0.4); EOSINOPHILS % (AUTO) 2.6 % (0.0-4.0); HEMATOCRIT 35.2 % (36-48); HEMOGLOBIN 11.8 g/dL (12.0-16.0); LYMPHOCYTES # (AUTO) 1.1 K/uL (1.0-5.5); LYMPHOCYTES % (AUTO) 18.6 % (20.5-51.5); MEAN CORPUSCULAR HEMOGLOBIN 32 pg (27-31); MEAN CORPUSCULAR HGB CONC 34 % (32-36); MEAN CORPUSCULAR VOLUME 94 fL (79.0-98.0); MONOCYTES # (AUTO) 0.6 K/uL (0.0-1.0); MONOCYTES % (AUTO) 9.6 % (1.7-9.3); NEUTROPHILS # (AUTO) 4.2 K/uL (1.8-7.7); NEUTROPHILS % (AUTO) 68.5 % (40.0-70.0); PLATELET COUNT (AUTO) 261 K/uL (130-430); RED BLOOD CELL COUNT(AUTO) 3.76 MIL/uL (4.2-6.2); RED CELL DISTRIBUTION WIDTH 15.2 % (9.0-15.0); WHITE BLOOD COUNT (AUTO) 6.1 K/uL (4.8-10.8)
[2022-06-17] MEDS: amLODIPine BESYLATE 5 MG TABLET PO SCH (08:10)
[2022-06-17] MEDS: BALSAM PERU/CASTOR OIL 56.7 GM OINT...G. TP SCH (08:11)
[2022-06-17 09:16] LABS: ALANINE AMINOTRANSFERASE 10 U/L (12-78); ALBUMIN 2.9 g/dL (3.4-4.8); ANION GAP 7 (5-15); ASPARTATE AMINOTRANSFERASE 13 U/L (10-37); CALCIUM 8.9 mg/dL (8.4-11.0); CHLORIDE 106 mmol/L (98-107); CREATININE 1.31 mg/dL (0.55-1.30); GLUCOSE 86 mg/dL (70-99); POTASSIUM 4.5 mmol/L (3.5-5.1); SODIUM SERUM 141 mmol/L (136-145); TOTAL BILIRUBIN 0.3 mg/dL (0.0-1.0); UREA NITROGEN, BLOOD 42 mg/dL (8-21)
[2022-06-17] MEDS ORDERED: LIDOCAINE 1% 10 MG/ML, 20 ML MDV INJ ONE (17:15)
[2022-06-17] MEDS ORDERED: MORPHINE 4 MG INJ. 4 MG/ML VIAL ONE (17:38)
[2022-06-17 20:00] VITALS: BP_SYST 159
[2022-06-18] VITALS: BP_SYST 137
[2022-06-18] MEDS: NORMAL SALINE 5 ML DISP.SYRIN IVF SCH ×3 (05:08→22:15)
[2022-06-18 07:51] VITALS: BP_SYST 151
[2022-06-18] MEDS ORDERED: MORPHINE 4 MG INJ. 4 MG/ML VIAL IVP ONE (08:00)
[2022-06-18 08:59] VITALS: BP_SYST 151
[2022-06-18] MEDS: amLODIPine BESYLATE 5 MG TABLET PO SCH (09:05)
[2022-06-18] MEDS: BALSAM PERU/CASTOR OIL 56.7 GM OINT...G. TP SCH (09:12)
[2022-06-18] MEDS ORDERED: AMLO5TAB4 PO (10:30)
[2022-06-18 13:18] VITALS: BP_SYST 148
[2022-06-18 18:08] VITALS: BP_SYST 147
[2022-06-18 19:30] VITALS: BP_SYST 145
[2022-06-19] VITALS (8 sets, daily range): BP systolic 112–166
[2022-06-19] MEDS: NORMAL SALINE 5 ML DISP.SYRIN IVF SCH ×3 (05:01→21:20)
[2022-06-19 08:07] LABS: ANION GAP 7 (5-15); CHLORIDE 106 mmol/L (98-107); CREATININE 1.21 mg/dL (0.55-1.30); GLUCOSE 90 mg/dL (70-99); POTASSIUM 4.8 mmol/L (3.5-5.1); SODIUM SERUM 140 mmol/L (136-145); UREA NITROGEN, BLOOD 44 mg/dL (8-21)
[2022-06-19] MEDS: amLODIPine BESYLATE 5 MG TABLET PO SCH (08:13)
[2022-06-19 08:38] LABS: BASOPHILS % (AUTO) 0.7 % (0.0-2.0); EOSINOPHILS # (AUTO) 0.1 K/uL (0.0-0.4); EOSINOPHILS % (AUTO) 2.3 % (0.0-4.0); HEMATOCRIT 33.7 % (36-48); HEMOGLOBIN 11.2 g/dL (12.0-16.0); LYMPHOCYTES # (AUTO) 1.1 K/uL (1.0-5.5); MEAN CORPUSCULAR HEMOGLOBIN 31 pg (27-31); MEAN CORPUSCULAR HGB CONC 33 % (32-36); MEAN CORPUSCULAR VOLUME 94 fL (79.0-98.0); MONOCYTES # (AUTO) 0.5 K/uL (0.0-1.0); MONOCYTES % (AUTO) 8.9 % (1.7-9.3); NEUTROPHILS # (AUTO) 4.1 K/uL (1.8-7.7); NEUTROPHILS % (AUTO) 69.1 % (40.0-70.0); PLATELET COUNT (AUTO) 263 K/uL (130-430); RED CELL DISTRIBUTION WIDTH 15.1 % (9.0-15.0)
[2022-06-19] MEDS: BALSAM PERU/CASTOR OIL 56.7 GM OINT...G. TP SCH (08:46)
[2022-06-19] MEDS: ENALAPRILAT DIHYDRATE 1.25 MG/ML VIAL IVP PRN ×2 (08:50→21:20)
[2022-06-19] MEDS ORDERED: SULF1TAB48 PO (11:10)
[2022-06-20 00:48] VITALS: BP_SYST 170
[2022-06-20 04:00] VITALS: BP_SYST 148
[2022-06-20] MEDS: NORMAL SALINE 5 ML DISP.SYRIN IVF SCH ×2 (06:30→21:45)
[2022-06-20 07:28] LABS: BASOPHILS % (AUTO) 0.9 % (0.0-2.0); EOSINOPHILS # (AUTO) 0.1 K/uL (0.0-0.4); EOSINOPHILS % (AUTO) 2.6 % (0.0-4.0); HEMATOCRIT 35.9 % (36-48); HEMOGLOBIN 11.9 g/dL (12.0-16.0); LYMPHOCYTES # (AUTO) 1.4 K/uL (1.0-5.5); LYMPHOCYTES % (AUTO) 27.1 % (20.5-51.5); MEAN CORPUSCULAR HEMOGLOBIN 31 pg (27-31); MEAN CORPUSCULAR HGB CONC 33 % (32-36); MEAN CORPUSCULAR VOLUME 95 fL (79.0-98.0); MONOCYTES # (AUTO) 0.6 K/uL (0.0-1.0); MONOCYTES % (AUTO) 11.1 % (1.7-9.3); NEUTROPHILS # (AUTO) 3.1 K/uL (1.8-7.7); NEUTROPHILS % (AUTO) 58.3 % (40.0-70.0); PLATELET COUNT (AUTO) 280 K/uL (130-430); RED BLOOD CELL COUNT(AUTO) 3.79 MIL/uL (4.2-6.2); RED CELL DISTRIBUTION WIDTH 15.5 % (9.0-15.0); WHITE BLOOD COUNT (AUTO) 5.3 K/uL (4.8-10.8)
[2022-06-20 07:36] LABS: ANION GAP 9 (5-15); CALCIUM 9.1 mg/dL (8.4-11.0); CHLORIDE 106 mmol/L (98-107); CREATININE 1.27 mg/dL (0.55-1.30); GLUCOSE 81 mg/dL (70-99); POTASSIUM 4.5 mmol/L (3.5-5.1); SODIUM SERUM 143 mmol/L (136-145); UREA NITROGEN, BLOOD 39 mg/dL (8-21)
[2022-06-20] MEDS: amLODIPine BESYLATE 5 MG TABLET PO SCH (08:46)
[2022-06-20] MEDS: BALSAM PERU/CASTOR OIL 56.7 GM OINT...G. TP SCH (08:47)
[2022-06-20 12:00] VITALS: BP_SYST 152
[2022-06-20 16:10] VITALS: BP_SYST 154
[2022-06-20 19:35] VITALS: BP_SYST 123
[2022-06-21 03:36] VITALS: BP_SYST 180
[2022-06-21] MEDS: ENALAPRILAT DIHYDRATE 1.25 MG/ML VIAL IVP PRN (03:40)
[2022-06-21] MEDS: NORMAL SALINE 5 ML DISP.SYRIN IVF SCH ×3 (05:05→22:44)
[2022-06-21 05:06] VITALS: BP_SYST 149
[2022-06-21 08:03] VITALS: BP_SYST 145
[2022-06-21] MEDS: BALSAM PERU/CASTOR OIL 56.7 GM OINT...G. TP SCH (09:00)
[2022-06-21] MEDS: amLODIPine BESYLATE 5 MG TABLET PO SCH (09:23)
[2022-06-21] MEDS ORDERED: SULFAMETHOXAZOLE/TRIMETHOPR DS 1 TABLET PO ONE (11:15)
[2022-06-21 12:00] VITALS: BP_SYST 147
[2022-06-21 16:12] VITALS: BP_SYST 146
[2022-06-21 20:00] VITALS: BP_SYST 139
[2022-06-21] MEDS: SULFAMETHOXAZOLE/TRIMETHOPR DS 1 TABLET PO SCH (22:44)
[2022-06-22] VITALS (7 sets, daily range): BP systolic 141–175
[2022-06-22] MEDS: amLODIPine BESYLATE 5 MG TABLET PO SCH (09:00)
[2022-06-22] MEDS: SULFAMETHOXAZOLE/TRIMETHOPR DS 1 TABLET PO SCH ×2 (09:00→21:18)
[2022-06-22] MEDS: BALSAM PERU/CASTOR OIL 56.7 GM OINT...G. TP SCH (09:14)
[2022-06-22] MEDS: NORMAL SALINE 5 ML DISP.SYRIN IVF SCH ×3 (09:14→21:19)
[2022-06-22] MEDS ORDERED: fentaNYL CITRATE/PF 100 MCG/2 ML AMP IVP PRN ×2 (09:15)
[2022-06-22] MEDS ORDERED: METOCLOPRAMIDE HCL 10 MG/2 ML VIAL IVP PRN (09:15)
[2022-06-22] MEDS ORDERED: ONDANSETRON HCL 4 MG/2 ML VIAL IVP PRN ×2 (09:15→11:00)
[2022-06-22] MEDS ORDERED: PROPOFOL 200MG/ 20ML VIAL (DIPRIVAN) IV ONE (09:45)
[2022-06-22] MEDS ORDERED: BUPIVACAINE /PF 0.25% 30 ML VIAL INJ ONE (09:45)
[2022-06-22] MEDS ORDERED: LIDOCAINE/EPI 1% 1:100000 20 ML VIAL INJ ONE (09:45)
[2022-06-22] MEDS ORDERED: NS IRRIG SOLN 1000 ML IR ONE (09:45)
[2022-06-22] MEDS ORDERED: NS 500 ML IV.SOLN IV ONE (09:45)
[2022-06-22 10:27] LABS: ANION GAP 9 (5-15); CALCIUM 8.9 mg/dL (8.4-11.0); CHLORIDE 102 mmol/L (98-107); CREATININE 1.35 mg/dL (0.55-1.30); GLUCOSE 92 mg/dL (70-99); POTASSIUM 4.5 mmol/L (3.5-5.1); SODIUM SERUM 136 mmol/L (136-145); UREA NITROGEN, BLOOD 42 mg/dL (8-21)
[2022-06-22] MEDS ORDERED: MORPHINE 4 MG INJ. 4 MG/ML VIAL IVP PRN (11:00)
[2022-06-22] MEDS ORDERED: HYDROcodone/ACETAMIN 5-325 MG TAB (NORCO/ VICODIN) PO PRN (11:00)
[2022-06-22 14:45] LABS: BASOPHILS # (AUTO) 0.1 K/uL (0.0-0.2); BASOPHILS % (AUTO) 0.8 % (0.0-2.0); EOSINOPHILS # (AUTO) 0.1 K/uL (0.0-0.4); EOSINOPHILS % (AUTO) 1.5 % (0.0-4.0); HEMATOCRIT 35.2 % (36-48); HEMOGLOBIN 11.7 g/dL (12.0-16.0); LYMPHOCYTES # (AUTO) 0.9 K/uL (1.0-5.5); LYMPHOCYTES % (AUTO) 12.9 % (20.5-51.5); MEAN CORPUSCULAR HEMOGLOBIN 31 pg (27-31); MEAN CORPUSCULAR HGB CONC 33 % (32-36); MEAN CORPUSCULAR VOLUME 94 fL (79.0-98.0); MONOCYTES # (AUTO) 0.6 K/uL (0.0-1.0); MONOCYTES % (AUTO) 7.9 % (1.7-9.3); NEUTROPHILS # (AUTO) 5.6 K/uL (1.8-7.7); NEUTROPHILS % (AUTO) 76.9 % (40.0-70.0); PLATELET COUNT (AUTO) 265 K/uL (130-430); RED BLOOD CELL COUNT(AUTO) 3.73 MIL/uL (4.2-6.2); RED CELL DISTRIBUTION WIDTH 15.2 % (9.0-15.0); WHITE BLOOD COUNT (AUTO) 7.3 K/uL (4.8-10.8)
[2022-06-22 14:52] LABS: BILIRUBIN,URINE NEGATIVE (NEGATIVE); BLOOD, URINE NEGATIVE (NEGATIVE); CLARITY/URINE CLEAR (CLEAR); COLOR,URINE YELLOW (YELLOW); GLUCOSE,URINE NEGATIVE (NEGATIVE); KETONES,URINE NEGATIVE (NEGATIVE); LEUKOCYTE ESTERASE ,URINE 1+ (NEGATIVE); NITRITE, URINE NEGATIVE (NEGATIVE); PROTEIN URINE NEGATIVE (NEGATIVE); UROBILINOGEN,URINE 0.2 (0.2-1.0)
[2022-06-22 15:25] LABS: RBC,URINE 0-3 /HPF (0-3)
[2022-06-22 15:26] LABS: BACTERIA,URINE RARE /HPF (None Seen)
[2022-06-22] MEDS: ENALAPRILAT DIHYDRATE 1.25 MG/ML VIAL IVP PRN (21:36)
[2022-06-23 00:09] VITALS: BP_SYST 157
[2022-06-23] MEDS: NORMAL SALINE 5 ML DISP.SYRIN IVF SCH ×3 (06:26→20:42)
[2022-06-23 08:00] VITALS: BP_SYST 167
[2022-06-23 08:13] LABS: ANION GAP 5 (5-15); CALCIUM 8.9 mg/dL (8.4-11.0); CHLORIDE 107 mmol/L (98-107); CREATININE 1.37 mg/dL (0.55-1.30); GLUCOSE 84 mg/dL (70-99); POTASSIUM 4.7 mmol/L (3.5-5.1); SODIUM SERUM 141 mmol/L (136-145); UREA NITROGEN, BLOOD 33 mg/dL (8-21)
[2022-06-23] MEDS: BALSAM PERU/CASTOR OIL 56.7 GM OINT...G. TP SCH (08:53)
[2022-06-23] MEDS: SULFAMETHOXAZOLE/TRIMETHOPR DS 1 TABLET PO SCH ×2 (08:53→20:42)
[2022-06-23] MEDS: amLODIPine BESYLATE 5 MG TABLET PO SCH (08:53)
[2022-06-23] MEDS ORDERED: HYDROCHLOROTHIAZIDE 25 MG TABLET (HCTZ) PO ONE (11:45)
[2022-06-23 12:00] VITALS: BP_SYST 134
[2022-06-23 12:09] LABS: BASOPHILS # (AUTO) 0.1 K/uL (0.0-0.2); EOSINOPHILS # (AUTO) 0.1 K/uL (0.0-0.4); EOSINOPHILS % (AUTO) 2.6 % (0.0-4.0); HEMATOCRIT 35.9 % (36-48); HEMOGLOBIN 12.1 g/dL (12.0-16.0); LYMPHOCYTES # (AUTO) 1.2 K/uL (1.0-5.5); LYMPHOCYTES % (AUTO) 24.9 % (20.5-51.5); MEAN CORPUSCULAR HEMOGLOBIN 32 pg (27-31); MEAN CORPUSCULAR HGB CONC 34 % (32-36); MEAN CORPUSCULAR VOLUME 94 fL (79.0-98.0); MONOCYTES # (AUTO) 0.5 K/uL (0.0-1.0); MONOCYTES % (AUTO) 9.4 % (1.7-9.3); NEUTROPHILS # (AUTO) 3.1 K/uL (1.8-7.7); NEUTROPHILS % (AUTO) 62.1 % (40.0-70.0); PLATELET COUNT (AUTO) 266 K/uL (130-430); RED BLOOD CELL COUNT(AUTO) 3.81 MIL/uL (4.2-6.2); RED CELL DISTRIBUTION WIDTH 15.3 % (9.0-15.0)
[2022-06-23 16:00] VITALS: BP_SYST 109
[2022-06-23 19:00] VITALS: BP_SYST 149
[2022-06-23 20:00] VITALS: BP_SYST 149
[2022-06-24] MEDS: NORMAL SALINE 5 ML DISP.SYRIN IVF SCH ×3 (05:42→21:03)
[2022-06-24 07:51] LABS: BASOPHILS # (AUTO) 0.1 K/uL (0.0-0.2); BASOPHILS % (AUTO) 0.8 % (0.0-2.0); EOSINOPHILS # (AUTO) 0.2 K/uL (0.0-0.4); EOSINOPHILS % (AUTO) 2.4 % (0.0-4.0); HEMATOCRIT 35.9 % (36-48); HEMOGLOBIN 11.8 g/dL (12.0-16.0); LYMPHOCYTES # (AUTO) 1.8 K/uL (1.0-5.5); LYMPHOCYTES % (AUTO) 26.1 % (20.5-51.5); MEAN CORPUSCULAR HEMOGLOBIN 31 pg (27-31); MEAN CORPUSCULAR HGB CONC 33 % (32-36); MEAN CORPUSCULAR VOLUME 95 fL (79.0-98.0); MONOCYTES # (AUTO) 0.7 K/uL (0.0-1.0); MONOCYTES % (AUTO) 9.6 % (1.7-9.3); NEUTROPHILS # (AUTO) 4.2 K/uL (1.8-7.7); NEUTROPHILS % (AUTO) 61.1 % (40.0-70.0); PLATELET COUNT (AUTO) 316 K/uL (130-430); RED BLOOD CELL COUNT(AUTO) 3.77 MIL/uL (4.2-6.2); RED CELL DISTRIBUTION WIDTH 14.9 % (9.0-15.0); WHITE BLOOD COUNT (AUTO) 6.8 K/uL (4.8-10.8)
[2022-06-24 08:00] VITALS: BP_SYST 158
[2022-06-24 08:30] LABS: ALANINE AMINOTRANSFERASE 20 U/L (12-78); ALBUMIN 3.3 g/dL (3.4-4.8); ANION GAP 8 (5-15); ASPARTATE AMINOTRANSFERASE 20 U/L (10-37); CHLORIDE 105 mmol/L (98-107); CREATININE 1.65 mg/dL (0.55-1.30); GLUCOSE 82 mg/dL (70-99); POTASSIUM 4.6 mmol/L (3.5-5.1); SODIUM SERUM 140 mmol/L (136-145); TOTAL BILIRUBIN 0.1 mg/dL (0.0-1.0); UREA NITROGEN, BLOOD 33 mg/dL (8-21)
[2022-06-24 08:41] LABS: C-REACTIVE PROTEIN QUANT < 0.2 mg/dL (0-0.5)
[2022-06-24] MEDS: SULFAMETHOXAZOLE/TRIMETHOPR DS 1 TABLET PO SCH ×2 (08:51→21:02)
[2022-06-24] MEDS: BALSAM PERU/CASTOR OIL 56.7 GM OINT...G. TP SCH (08:52)
[2022-06-24] MEDS: amLODIPine BESYLATE 5 MG TABLET PO SCH (08:52)
[2022-06-24] MEDS ORDERED: HYDROCHLOROTHIAZIDE 25 MG TABLET (HCTZ) PO SCH (09:00)
[2022-06-24] MEDS ORDERED: NS 250 ML IV ONE (09:45)
[2022-06-24] MEDS: D5/0.45 NS 1,000 ML IV SCH ×2 (10:45→20:45)
[2022-06-24 12:00] VITALS: BP_SYST 131
[2022-06-24 12:42] LABS: ERYTHROCYTE SEDIMENTATION RATE 14 MM/HR (0-20)
[2022-06-24 16:00] VITALS: BP_SYST 132
[2022-06-24] MEDS ORDERED: MUPIROCIN 1 GM OIN.PF.APP NS SCH (21:00)
[2022-06-24] MEDS: MUPIROCIN 2% TOPICAL OINTMENT 22 GM NS SCH (21:00)
[2022-06-25] VITALS: BP_SYST 160
[2022-06-25 06:41] LABS: BASOPHILS % (AUTO) 0.7 % (0.0-2.0); EOSINOPHILS # (AUTO) 0.2 K/uL (0.0-0.4); EOSINOPHILS % (AUTO) 2.8 % (0.0-4.0); HEMATOCRIT 34.1 % (36-48); HEMOGLOBIN 11.6 g/dL (12.0-16.0); LYMPHOCYTES # (AUTO) 1.3 K/uL (1.0-5.5); LYMPHOCYTES % (AUTO) 21.9 % (20.5-51.5); MEAN CORPUSCULAR HEMOGLOBIN 32 pg (27-31); MEAN CORPUSCULAR HGB CONC 34 % (32-36); MEAN CORPUSCULAR VOLUME 93 fL (79.0-98.0); MONOCYTES # (AUTO) 0.6 K/uL (0.0-1.0); MONOCYTES % (AUTO) 10.5 % (1.7-9.3); NEUTROPHILS # (AUTO) 3.7 K/uL (1.8-7.7); NEUTROPHILS % (AUTO) 64.1 % (40.0-70.0); PLATELET COUNT (AUTO) 264 K/uL (130-430); RED BLOOD CELL COUNT(AUTO) 3.67 MIL/uL (4.2-6.2); RED CELL DISTRIBUTION WIDTH 14.8 % (9.0-15.0); WHITE BLOOD COUNT (AUTO) 5.8 K/uL (4.8-10.8)
[2022-06-25] MEDS: D5/0.45 NS 1,000 ML IV SCH (06:45)
[2022-06-25 07:00] LABS: ANION GAP 6 (5-15); CALCIUM 9.1 mg/dL (8.4-11.0); CHLORIDE 104 mmol/L (98-107); CREATININE 1.67 mg/dL (0.55-1.30); GLUCOSE 82 mg/dL (70-99); POTASSIUM 4.7 mmol/L (3.5-5.1); SODIUM SERUM 138 mmol/L (136-145); UREA NITROGEN, BLOOD 31 mg/dL (8-21)
[2022-06-25 08:28] VITALS: BP_SYST 142
[2022-06-25] MEDS ORDERED: HYDROCHLOROTHIAZIDE 12.5 MG CAPSULE (HCTZ) PO SCH (09:00)
[2022-06-25] MEDS: SULFAMETHOXAZOLE/TRIMETHOPR DS 1 TABLET PO SCH (10:26)
[2022-06-25] MEDS: amLODIPine BESYLATE 5 MG TABLET PO SCH (10:27)
[2022-06-25] MEDS: MUPIROCIN 2% TOPICAL OINTMENT 22 GM NS SCH (10:27)
[2022-06-25 14:26] VITALS: BP_SYST 142
[2022-06-25 17:14] VITALS: BP_SYST 137
== END 2022-06-25 17:35 | disposition home or self-care (01) | DRG 843 ==
LOC: SED 17:41 → STU 20:14 → SMU 06-19 15:49
PROVIDERS: ADMIT Preventive Medicine Preventive Medicine/Occupational Environmental Medicine; ATTEND Preventive Medicine Preventive Medicine/Occupational Environmental Medicine
PROC: 0JBF0ZX Excision of Left Upper Arm Subcutaneous Tissue and Fascia, Open Approach, Diagnostic (ICD-10-PCS; principal; 2022-06-17)
PROC: 4A00X4Z Measurement of Central Nervous Electrical Activity, External Approach (ICD-10-PCS; 2022-06-20)
PROC: 0HBCXZZ Excision of Left Upper Arm Skin, External Approach (ICD-10-PCS; 2022-06-22)
DX: C76.42 Malignant neoplasm of left upper limb (principal); N17.0 Acute kidney failure with tubular necrosis; S41.102A Unspecified open wound of left upper arm, initial encounter; B95.62 Methicillin resistant Staphylococcus aureus infection as the cause of diseases classified elsewhere; I16.0 Hypertensive urgency; L98.9 Disorder of the skin and subcutaneous tissue, unspecified; R53.1 Weakness; R62.7 Adult failure to thrive; E88.09 Other disorders of plasma-protein metabolism, not elsewhere classified; D64.9 Anemia, unspecified; F03.90 Unspecified dementia, unspecified severity, without behavioral disturbance, psychotic disturbance, mood disturbance, and anxiety; I10 Essential (primary) hypertension; I99.8 Other disorder of circulatory system; Z20.822 Contact with and (suspected) exposure to COVID-19; X58.XXXA Exposure to other specified factors, initial encounter; Z86.73 Personal history of transient ischemic attack (TIA), and cerebral infarction without residual deficits; Z68.21 Body mass index [BMI] 21.0-21.9, adult; Y93.89 Activity, other specified; Y92.89 Other specified places as the place of occurrence of the external cause; Y99.8 Other external cause status
CPT/HCPCS: 36415; 70450-TC; 71045; 76376; 76770; 80048; 80053; 81000; 83605; 83735; 83880; 84100; 84484; 85025; 85651-TC; 85730-TC; 86140; 87070-TC; 87081; 87186-TC; 88305; 93005; 93306; 94010; 95816; 97110-GP; 97116-GP; 97530-GP; 99285; G0378; J2060; J2270; J2405; J2704; J3490; J7040